=== PATIENT | male | born 1970 | race Caucasian/White ===

== ENCOUNTER 2019-06-11 12:16 | Inpatient (IN) | payer MEDICAID ==
[~2019-06-11] VITALS: Ht 180.3 cm; Wt 86.9 kg
[2019-06-11 12:37] VITALS: Ht 180.3 cm; Wt 86.9 kg
[2019-06-11 13:27] LABS: BASOPHIL % 0.3 % (0-2); RED CELL DISTRIBUTION WIDTH 13.8 % (11.5-14.5)
[2019-06-11 13:28] LABS: PLATELET COUNT 451 x10^3mcL (130-400)
[2019-06-11 13:56] LABS: BILIRUBIN TOTAL 0.53 mg/dL (0.20-1.00); CALCIUM 8.1 mg/dL (8.5-10.1); CARBON DIOXIDE 13.3 mmol/L (21-32); MAGNESIUM 1.7 mg/dL (1.8-2.4); POTASSIUM SERUM 3.7 mmol/L (3.5-5.1)
[2019-06-11 13:57] LABS: ALBUMIN 2.8 g/dL (3.4-5.0)
[2019-06-11 18:08] VITALS: BP 114/49
[2019-06-11 19:21] LABS: CALCIUM 8.1 mg/dL (8.5-10.1); CARBON DIOXIDE 18.6 mmol/L (21-32); POTASSIUM SERUM 3.7 mmol/L (3.5-5.1)
[2019-06-11 19:45] VITALS: BP 78/63
[2019-06-12 00:48] VITALS: BP 86/63
[2019-06-12 00:57] LABS: CALCIUM 7.9 mg/dL (8.5-10.1); CARBON DIOXIDE 20.4 mmol/L (21-32); CREATININE SERUM 3.9 mg/dL (0.7-1.3); POTASSIUM SERUM 3.8 mmol/L (3.5-5.1)
[2019-06-12 03:45] VITALS: BP 82/55
[2019-06-12 06:14] LABS: RED CELL DISTRIBUTION WIDTH 14.2 % (11.5-14.5)
[2019-06-12 06:25] LABS: CALCIUM 7.7 mg/dL (8.5-10.1); CARBON DIOXIDE 20.9 mmol/L (21-32); CREATININE SERUM 3.4 mg/dL (0.7-1.3); MAGNESIUM 1.7 mg/dL (1.8-2.4); PHOSPHOROUS 5.9 mg/dL (2.5-4.9); POTASSIUM SERUM 3.5 mmol/L (3.5-5.1)
[2019-06-12 07:02] LABS: PLATELET COUNT 474 x10^3mcL (130-400)
[2019-06-12 07:56] LABS: CALCIUM 7.7 mg/dL (8.5-10.1); CARBON DIOXIDE 19.8 mmol/L (21-32); CREATININE SERUM 3.1 mg/dL (0.7-1.3); POTASSIUM SERUM 3.6 mmol/L (3.5-5.1)
[2019-06-12 08:30] VITALS: BP 90/67
[2019-06-12 09:01] LABS: UA SPECIFIC GRAVITY >=1.030 (1.005-1.035); microscopic required? YES; urine erythrocyte NEGATIVE (NEGATIVE)
[2019-06-12 09:07] LABS: AMPHETAMINE QUAL UR POSITIVE (See below)
[2019-06-12 11:48] LABS: BAND NEUTROPHIL 0 % (0-10); BASOPHIL 0 % (0-2); MONOCYTE 7 % (0-7); PLATELET MORPHOLOGY PLATELETS INCREASED; SEGMENTED NEUTROPHILS 88 % (37-75)
[2019-06-12 11:53] LABS: rbc morphology (normal/abnorm) ABNORMAL (NORMAL)
[2019-06-12 12:15] VITALS: BP 90/65
[2019-06-12 12:25] LABS: CALCIUM 7.8 mg/dL (8.5-10.1); CARBON DIOXIDE 23.8 mmol/L (21-32); CREATININE SERUM 2.6 mg/dL (0.7-1.3); POTASSIUM SERUM 3.3 mmol/L (3.5-5.1)
[2019-06-12 16:10] LABS: CALCIUM 7.8 mg/dL (8.5-10.1); CARBON DIOXIDE 22.3 mmol/L (21-32); CREATININE SERUM 2.7 mg/dL (0.7-1.3); POTASSIUM SERUM 3.5 mmol/L (3.5-5.1)
[2019-06-12 16:19] VITALS: BP 104/77
[2019-06-12 19:45] VITALS: BP 101/80
[2019-06-12 20:14] LABS: CALCIUM 7.5 mg/dL (8.5-10.1); CARBON DIOXIDE 24.3 mmol/L (21-32); POTASSIUM SERUM 3.5 mmol/L (3.5-5.1)
[2019-06-13] VITALS: BP 106/77
[2019-06-13 01:10] LABS: CALCIUM 7.4 mg/dL (8.5-10.1); CARBON DIOXIDE 22.5 mmol/L (21-32); CREATININE SERUM 1.7 mg/dL (0.7-1.3); MAGNESIUM 1.6 mg/dL (1.8-2.4); PHOSPHOROUS 2.8 mg/dL (2.5-4.9); POTASSIUM SERUM 3.1 mmol/L (3.5-5.1)
[2019-06-13 04:15] VITALS: BP 107/77
[2019-06-13 04:53] LABS: BASOPHIL % 0.3 % (0-2); PLATELET COUNT 291 x10^3mcL (130-400)
[2019-06-13 05:00] LABS: RED CELL DISTRIBUTION WIDTH 14.6 % (11.5-14.5)
[2019-06-13 05:09] LABS: CALCIUM 7.7 mg/dL (8.5-10.1); CARBON DIOXIDE 21.3 mmol/L (21-32); CREATININE SERUM 1.5 mg/dL (0.7-1.3); MAGNESIUM 1.7 mg/dL (1.8-2.4); PHOSPHOROUS 2.5 mg/dL (2.5-4.9); POTASSIUM SERUM 3.4 mmol/L (3.5-5.1)
[2019-06-13 08:00] VITALS: BP 119/83
[2019-06-13 08:27] LABS: CALCIUM 7.9 mg/dL (8.5-10.1); CARBON DIOXIDE 23.5 mmol/L (21-32); CREATININE SERUM 1.4 mg/dL (0.7-1.3); MAGNESIUM 1.8 mg/dL (1.8-2.4); POTASSIUM SERUM 3.5 mmol/L (3.5-5.1)
[2019-06-13 12:00] VITALS: BP 109/77
[2019-06-13 12:20] LABS: CARBON DIOXIDE 21.6 mmol/L (21-32); CREATININE SERUM 1.4 mg/dL (0.7-1.3); MAGNESIUM 1.8 mg/dL (1.8-2.4); POTASSIUM SERUM 3.7 mmol/L (3.5-5.1)
[2019-06-13 17:59] VITALS: BP 106/54
[2019-06-13 19:16] VITALS: BP 133/86
[2019-06-14 05:27] VITALS: BP 140/105
[2019-06-14 06:31] LABS: BASOPHIL % 0.4 % (0-2); PLATELET COUNT 296 x10^3mcL (130-400); RED CELL DISTRIBUTION WIDTH 14.2 % (11.5-14.5)
[2019-06-14 06:55] LABS: CALCIUM 8.5 mg/dL (8.5-10.1); CARBON DIOXIDE 26.5 mmol/L (21-32); CHLORIDE SERUM 106 mmol/L (98-107); GFR1 > 60 mL/min; GLUCOSE SERUM 162 mg/dL (74-106); MAGNESIUM 1.8 mg/dL (1.8-2.4); PHOSPHOROUS 2.9 mg/dL (2.5-4.9); POTASSIUM SERUM 4.2 mmol/L (3.5-5.1); SODIUM SERUM 140 mmol/L (136-145)
[2019-06-14 09:20] VITALS: BP 142/95
[2019-06-14 13:14] VITALS: BP 150/99
[2019-06-14 15:51] VITALS: BP 126/91
[2019-06-14 19:19] VITALS: BP 159/93
[2019-06-15 05:43] VITALS: BP 148/96
[2019-06-15 07:27] VITALS: BP 156/108
[2019-06-15 12:04] VITALS: BP 153/94
[2019-06-15 13:04] LABS: BASOPHIL % 0.3 % (0-2); PLATELET COUNT 327 x10^3mcL (130-400); RED CELL DISTRIBUTION WIDTH 14.4 % (11.5-14.5)
[2019-06-15 13:20] LABS: CARBON DIOXIDE 29 mmol/L (21-32); CHLORIDE SERUM 105 mmol/L (98-107); GLUCOSE SERUM 265 mg/dL (74-106); POTASSIUM SERUM 4.3 mmol/L (3.5-5.1); SODIUM SERUM 139 mmol/L (136-145)
[2019-06-15 13:21] LABS: CALCIUM 8.4 mg/dL (8.5-10.1); CREATININE SERUM 1.1 mg/dL (0.7-1.3); GFR1 > 60 mL/min
[2019-06-15 16:24] VITALS: BP 157/106
[2019-06-15 20:30] VITALS: BP 158/92
[2019-06-16 05:18] VITALS: BP 165/112
[2019-06-16 06:18] VITALS: BP 137/81
[2019-06-16 06:26] LABS: BASOPHIL % 0.2 % (0-2); PLATELET COUNT 252 x10^3mcL (130-400); RED CELL DISTRIBUTION WIDTH 14.3 % (11.5-14.5)
[2019-06-16 07:02] LABS: CALCIUM 8.5 mg/dL (8.5-10.1); CARBON DIOXIDE 28.5 mmol/L (21-32); CHLORIDE SERUM 108 mmol/L (98-107); CREATININE SERUM 0.9 mg/dL (0.7-1.3); GFR1 > 60 mL/min; GLUCOSE SERUM 88 mg/dL (74-106); MAGNESIUM 1.5 mg/dL (1.8-2.4); PHOSPHOROUS 4.1 mg/dL (2.5-4.9); POTASSIUM SERUM 4.1 mmol/L (3.5-5.1); SODIUM SERUM 144 mmol/L (136-145)
[2019-06-16 09:27] VITALS: BP 146/93
[2019-06-16 16:50] VITALS: BP 152/96
[2019-06-16 20:18] VITALS: BP 150/92
[2019-06-17 06:05] VITALS: BP 149/89
[2019-06-17 07:24] LABS: BASOPHIL % 0.6 % (0-2); PLATELET COUNT 300 x10^3mcL (130-400)
[2019-06-17 08:08] LABS: RED CELL DISTRIBUTION WIDTH 14.6 % (11.5-14.5)
[2019-06-17 08:19] LABS: CARBON DIOXIDE 27.6 mmol/L (21-32); CHLORIDE SERUM 102 mmol/L (98-107); POTASSIUM SERUM 4.3 mmol/L (3.5-5.1); SODIUM SERUM 138 mmol/L (136-145)
[2019-06-17 08:20] LABS: CALCIUM 8.3 mg/dL (8.5-10.1); CREATININE SERUM 1.2 mg/dL (0.7-1.3); GFR1 > 60 mL/min; GLUCOSE SERUM 385 mg/dL (74-106)
[2019-06-17 08:32] VITALS: BP 168/108
[2019-06-17] MEDS ORDERED: DIF100 PO (11:13)
[2019-06-17] MEDS ORDERED: HUMULIN R100 U/1 M1 SC (11:32)
[2019-06-17] MEDS ORDERED: LANTI SQ (11:33)
[2019-06-17] MEDS ORDERED: COZAAR25 M1 PO (11:40)
[2019-06-17 12:06] VITALS: BP 168/108
== END 2019-06-17 13:05 | disposition home or self-care (01) | DRG 720 ==
LOC: ED 12:16 → IC 15:16 → MU 15:16 → IC 15:35 → DU 06-13 14:12 → MU 06-14 14:36
PROVIDERS: Emergency Medicine; Internal Medicine; Internal Medicine Nephrology; ADMIT Family Medicine
PROC: 05HM33Z Insertion of Infusion Device into Right Internal Jugular Vein, Percutaneous Approach (ICD-10-PCS; principal; 2019-06-11)
DX: A41.9 Sepsis, unspecified organism (principal); J96.00 Acute respiratory failure, unspecified whether with hypoxia or hypercapnia; N17.0 Acute kidney failure with tubular necrosis; J69.0 Pneumonitis due to inhalation of food and vomit; E11.00 Type 2 diabetes mellitus with hyperosmolarity without nonketotic hyperglycemic-hyperosmolar coma (NKHHC); R65.21 Severe sepsis with septic shock; G93.41 Metabolic encephalopathy; E87.1 Hypo-osmolality and hyponatremia; B38.0 Acute pulmonary coccidioidomycosis; I27.20 Pulmonary hypertension, unspecified; I07.1 Rheumatic tricuspid insufficiency; R55 Syncope and collapse; S80.212A Abrasion, left knee, initial encounter; S80.211A Abrasion, right knee, initial encounter; R23.0 Cyanosis; F15.188 Other stimulant abuse with other stimulant-induced disorder; I10 Essential (primary) hypertension; E78.5 Hyperlipidemia, unspecified; M10.9 Gout, unspecified; F15.10 Other stimulant abuse, uncomplicated; Z68.28 Body mass index [BMI] 28.0-28.9, adult; Z79.84 Long term (current) use of oral hypoglycemic drugs; W18.39XA Other fall on same level, initial encounter; Y92.9 Unspecified place or not applicable; Y99.0 Civilian activity done for income or pay
CPT/HCPCS: 36600; 82962; 86580; 87046; 87046-59; 87116; 87206; 87804; 90715; A9540; G0378; J1644; J1815; J1956; J2405; J2543; J3370; J3490; J7030; J7040; Q0092